=== PATIENT | female | born 1965 ===

== ENCOUNTER 2017-10-16 06:22 | Day surgery (SDC) | payer OTHER ==
[~2017-10-16 06:22] MED LIST: CALTRATE 600+D1 EAC1 PO; ZINC LOZENGES1 EACH PO
== END 2017-10-16 11:30 | disposition home or self-care (01) ==
LOC: CIR.AMB 06:22
DX: M75.02 Adhesive capsulitis of left shoulder (principal); M75.22 Bicipital tendinitis, left shoulder